=== PATIENT | male | born 1930 | race Caucasian/White ===

== ENCOUNTER 2016-05-17 21:36 | Inpatient (IN) | payer OTHER, MEDICARE ==
[~2016-05-17] VITALS: Ht 172.7 cm; Wt 75.0 kg
[~2016-05-17 21:36] MED LIST: FENO54TA PO; GLIP5 PO; METO25 PO; PROT40TA PO; SIMV40 PO; SINE25100 PO; SYNT25TA PO; TAMS0.4C67 PO; TRAM50 PO
[2016-05-17] MEDS ORDERED: RESP: ALBUTEROL 2.5 MG/3 ML NEB (SCH) ONE (21:41)
[2016-05-17 21:42] VITALS: BP 148/77; PULSE 115; RESP 24; TEMP 99.1; O2SAT 100
[2016-05-17] MEDS ORDERED: RESP: ALBUTEROL 2.5 MG/IPRATROPIUM 0.5 MG NEB (SCH) INH (21:45)
[2016-05-17] MEDS ORDERED: SODIUM CHLORIDE 0.9% FLUSH 5 ML FLUSH IVF PRN (21:45)
[2016-05-17] MEDS ORDERED: methylPREDNISolone SOD SUCC 125 MG/2 ML VIAL IVP ONE (21:45)
[2016-05-17] MEDS: RESP: ALBUTEROL 2.5 MG/3 ML NEB (SCH) INH ×2 (21:49→21:50)
[2016-05-17 21:51] VITALS: PULSE 124; RESP 24
[2016-05-17] MEDS ORDERED: GLIP5TAB8 PO (22:02)
[2016-05-17] MEDS ORDERED: METO25TA3 PO (22:02)
[2016-05-17] MEDS ORDERED: PLAV75TA29 PO (22:02)
[2016-05-17] MEDS ORDERED: ZOCO40TA PO (22:02)
[2016-05-17] MEDS ORDERED: SYNT25TA PO (22:02)
[2016-05-17 22:03] LABS: AUTOMATED NEUTROPHIL # 8.7 TH/MM3 (1.8-7.7); BASOPHIL # 0.1 TH/MM3 (0-0.2); BASOPHIL % 0.5 % (0.0-2.0); EOSINOPHIL % 0.4 % (0.0-4.0); HEMATOCRIT 38.4 % (39.0-51.0); HEMO FLAGS DIFF FINAL; LYMPHOCYTE # 2.5 TH/MM3 (1.0-4.8); MEAN CELL VOLUME 85.1 FL (80.0-100.0); MEAN CORPUSCULAR HEMOGLOBIN 28.5 PG (27.0-34.0); MEAN CORPUSCULAR HGB CONC 33.5 % (32.0-36.0); MONO % 10.7 % (0.0-8.0); NEUT % 68.4 % (16.0-70.0); PLATELET COUNT 241 TH/MM3 (150-450); RED BLOOD COUNT 4.51 MIL/MM3 (4.50-5.90); RED CELL DISTRIBUTION WIDTH 14.8 % (11.6-17.2); WHITE BLOOD COUNT 12.6 TH/MM3 (4.0-11.0)
--- NOTE | 2016-05-17 22:18 | RADRPT ---
EXAM DATE/TIME: 05/17/2016 22:08 [facility] COMPARISON: No previous studies available for comparison. INDICATIONS : Shortness of breath. MEDICAL HISTORY : Hypertension. Hypercholesterolemia. Coronary artery disease. SURGICAL HISTORY : Coronary artery stent. ENCOUNTER: Initial ACUITY: 1 day PAIN SCORE: 0/10 LOCATION: Bilateral chest FINDINGS: A single view of the chest demonstrates no focal consolidation. Minimal basilar atelectasis or scarri ng. Atherosclerotic and tortuous aorta. No pneumothorax. CONCLUSION: 1. Minimal basilar atelectasis or scarring. No focal consolidation or effusion. Chente Allison MD on May 17, 2016 at 22:14 Board Certified Radiologist. This report was verified electronically.
[2016-05-17 22:25] LABS: APTT (PATIENT) 23.9 SEC (24.3-30.1); PROTHROMBIN TIME - PATIENT 11.1 SEC (9.8-11.6)
[2016-05-17 22:34] LABS: ANION GAP 9 MEQ/L (5-15); BICARBONATE 24.8 MEQ/L (21.0-32.0); BLOOD UREA NITROGEN 21 MG/DL (7-18); CHLORIDE 102 MEQ/L (98-107); GLOMERULAR FILTRATION RATE 44 ML/MIN (>89); SODIUM (NA) 136 MEQ/L (136-145)
[2016-05-17 22:45] LABS: CREATINE KINASE 85 U/L (39-308)
[2016-05-17 23:42] VITALS: O2SAT 94
[2016-05-18] VITALS (10 sets, daily range): BP systolic 123–164; BP diastolic 61–78; PULSE 16–114; RESP 16–20; TEMP 97.2–98.1; O2SAT 94–99
[2016-05-18] MEDS ORDERED: IOHEXOL 350 MG/ML 10 ML VIAL (for RAD DIAG) IV ONE (01:26)
--- NOTE | 2016-05-18 01:59 | RADRPT ---
EXAM DATE/TIME: 05/18/2016 01:26 [facility] COMPARISON: No previous studies available for comparison. INDICATIONS : Shortness of breath; rule out pulmonary embolus. IV CONTRAST: 75 cc Omnipaque 350 (iohexol) IV RADIATION DOSE: 11.06 CTDIvol (mGy) MEDICAL HISTORY : Hypertension. Hypercholesterolemia. Cardiovascular diseaseDiabetes SURGICAL HISTORY : hernia repair ENCOUNTER: Initial ACUITY: 1 day PAIN SCALE: 0/10 LOCATION: chest TECHNIQUE: Volumetric scanning of the chest was performed using a pulmonary embolism protocol MIP images were re constructed. Using automated exposure control and adjustment of the mA and/or kV according to patien t size, radiation dose was kept as low as reasonably achievable to obtain optimal diagnostic quality images. FINDINGS: PULMONARY ARTERIES: There are pulmonary embolus seen in the right pulmonary artery supplying the right lower lobe and to a much lesser degree at the pulmonary artery supplying portions of the left lower lobe. LUNGS: There is minimal consolidation at the posterior right lower lobe. PLEURAE: There is no pleural thickening or pleural effusion. MEDIASTINUM: There is good visualization of the great vessels of the middle mediastinum. No evidence of mediastin al or hilar adenopathy/mass. Atherosclerotic changes seen throughout the arterial system including th e aorta and coronary arteries. MUSCULOSKELETAL: Within normal limits for patient age. MISCELLANEOUS: The visualized upper abdominal organs demonstrate no acute abnormality. CONCLUSION: Pulmonary emboli being most prominent at the right lower lobe. Saul Ellis MD on May 18, 2016 at 1:52 Board Certified Radiologist. This report was verified electronically.
[2016-05-18] MEDS ORDERED: HEPARIN-D5W INJ 250 ML IV SCH (02:00)
[2016-05-18] MEDS ORDERED: HEPARIN SODIUM - IV 10,000 UNITS/10 ML VIAL IV ONE ×2 (02:00→02:30)
--- NOTE | 2016-05-18 02:17 | PD ---
HPI Chief Complaint: Respiratory Symptoms Time Seen by Provider: 21:43 Travel History International Travel<30 days: No Contact w/Intl Traveler<30days: No Traveled to known affect area: No History of Present Illness HPI 86-year-old male arrives to the ER by EMS. He has a history of COPD. He's had chest pain and shortness of breath all day long. Location bilateral. EMS reports an O2 sat of 95% on room air. Wheezing present bilaterally upon their arrival. Albuterol and Solu-Medrol was given. The patient reports improvement. He has no history of CHF. He's had no fever. PFSH Past Medical History Arthritis: No Asthma: No Autoimmune Disease: No Blood Disorders: No Heart Rhythm Problems: No Cancer: No Cardiac Catheterization: Yes Cardiovascular Problems: Yes High Cholesterol: Yes Chest Pain: Yes Congestive Heart Failure: No COPD: No Cerebrovascular Accident: No Coronary Artery Disease: Yes Diabetes: Yes Patient Takes Glucophage: Yes Diminished Hearing: No Endocrine: Yes Gastrointestinal Disorders: Yes GERD: No Glaucoma: No Genitourinary: Yes (prostate enlargement) Headaches: No Hepatitis: No Hiatal Hernia: No Hypertension: Yes Immune Disorder: No Kidney Stones: No Musculoskeletal: Yes (generalized weakness) Neurologic: Yes Psychiatric: No Reproductive: No Respiratory: No Migraines: No Myocardial Infarction: No Renal Failure: No Seizures: No Sleep Apnea: No Thyroid Disease: Yes Triglycerides - High: Yes Ulcer: No Past Surgical History Abdominal Surgery: Yes (hernia repair 01/30) AICD: No Appendectomy: No Cholecystectomy: No Coronary Stent: Yes Ear Surgery: No Endocrine Surgery: No Eye Surgery: No Genitourinary Surgery: No Gynecologic Surgery: No Oral Surgery: No Pacemaker: No Other Surgery: Yes (heart stent,sutures to lue) Social History Alcohol Use: No Tobacco Use: Yes Substance Use: No Allergies-Medications (Allergen,Severity, Reaction): Coded Allergies: No Known Allergies (Verified , 05/17/16) Reported Meds & Prescriptions Reported Meds & Active Scripts Active Reported Zocor (Simvastatin) 40 Mg Tab 40 Mg PO DAILY Plavix (Clopidogrel Bisulfate) 75 Mg Tab 75 Mg PO DAILY Metoprolol Tartrate 25 Mg Tab 25 Mg PO BID Glipizide 5 Mg Tab 5 Mg PO BIDAC Take 30 minutes before a meal Synthroid (Levothyroxine Sodium) 25 Mcg Tab 25 Mcg PO DAILY Review of Systems Except as stated in HPI: all other systems reviewed are Neg Physical Exam Narrative GENERAL: 86-year-old male mildly dyspneic emphysematous habitus SKIN: Warm and dry. HEAD: Atraumatic. Normocephalic. EYES: Pupils equal and round. No scleral icterus. No injection or drainage. ENT: No nasal bleeding or discharge. Mucous membranes pink and moist. NECK: Trachea midline. No JVD. CARDIOVASCULAR: Tachycardia. Regular rhythm. RESPIRATORY: Minimal tachypnea. Minimal wheezing present bilaterally. GASTROINTESTINAL: Abdomen soft, non-tender, nondistended. Hepatic and splenic margins not palpable. MUSCULOSKELETAL: No obvious deformities. No clubbing. No cyanosis. No edema. NEUROLOGICAL: Awake and alert. No obvious cranial nerve deficits. Motor grossly within normal limits. Normal speech. PSYCHIATRIC: Appropriate mood and affect; insight and judgment normal. Data Data Last Documented VS Vital Signs Date Time Temp Pulse Resp B/P Pulse Ox O2 Delivery O2 Flow Rate FiO2 05/18/16 01:48 114 20 157/72 96 Nasal Cannula 4 05/17/16 21:42 99.1 Vital signs reviewed Orders Albuterol Neb (Albuterol Neb) (05/17/16 21:41) Complete Blood Count With Diff (05/17/16 21:43) Basic Metabolic Panel (Bmp) (05/17/16 21:43) B-Type Natriuretic Peptide (05/17/16 21:43) Act Partial Throm Time (Ptt) (05/17/16 21:43) Prothrombin Time / Inr (Pt) (05/17/16 21:43) Ckmb (Isoenzyme) Profile (05/17/16 21:43) Troponin I (05/17/16 21:43) Iv Access Insert/Monitor (05/17/16 21:43) Electrocardiogram (05/17/16 21:43) Ecg Monitoring (05/17/16 21:43) Oximetry (05/17/16 21:43) Oxygen Administration (05/17/16 21:43) Chest, Single Ap (05/17/16 21:43) Sodium Chloride 0.9% Flush (Ns Flush) (05/17/16 21:45) Methylprednisolone So Succ Inj (Solumedr (05/17/16 21:45) Albuterol-Ipratropium Neb (Duoneb Neb) (05/17/16 21:45) Albuterol Neb (Albuterol Neb) (05/17/16 22:00) Ct Pulmonary Angiogram (05/18/16 00:00) Heparin Infusion ROMAINE.Q1H (05/18/16 01:57) Heparin Inj (Heparin Inj) (05/18/16 02:00) Heparin Inj (Heparin Inj) (05/18/16 08:00) Heparin Inj (Heparin Inj) (05/18/16 08:00) Heparin-D5w Inj (Heparin-D5w Inj) (05/18/16 02:00) Act Partial Throm Time (Ptt) (05/18/16 01:57) Prothrombin Time / Inr (Pt) (05/18/16 01:57) Cbc No Diff, Includes Plts (05/18/16 01:57) Cbc No Diff, Includes Plts (05/21/16 06:00) Act Partial Throm Time (Ptt) (05/18/16 08:57) Occult Blood (Hemoccult) Stool (05/18/16 01:57) Heparin Inj (Heparin Inj) (05/18/16 02:30) Labs Laboratory Tests Test 05/17/16 21:50 White Blood Count 12.6 TH/MM3 Red Blood Count 4.51 MIL/MM3 Hemoglobin 12.9 GM/DL Hematocrit 38.4 % Mean Corpuscular Volume 85.1 FL Mean Corpuscular Hemoglobin 28.5 PG Mean Corpuscular Hemoglobin 33.5 % Concent Red Cell Distribution Width 14.8 % Platelet Count 241 TH/MM3 Mean Platelet Volume 7.6 FL Neutrophils (%) (Auto) 68.4 % Lymphocytes (%) (Auto) 20.0 % Monocytes (%) (Auto) 10.7 % Eosinophils (%) (Auto) 0.4 % Basophils (%) (Auto) 0.5 % Neutrophils # (Auto) 8.7 TH/MM3 Lymphocytes # (Auto) 2.5 TH/MM3 Monocytes # (Auto) 1.3 TH/MM3 Eosinophils # (Auto) 0.0 TH/MM3 Basophils # (Auto) 0.1 TH/MM3 CBC Comment DIFF FINAL Differential Comment Prothrombin Time 11.1 SEC Prothromb Time International 1.0 RATIO Ratio Activated Partial 23.9 SEC Thromboplast Time Sodium Level 136 MEQ/L Potassium Level 4.0 MEQ/L Chloride Level 102 MEQ/L Carbon Dioxide Level 24.8 MEQ/L Anion Gap 9 MEQ/L Blood Urea Nitrogen 21 MG/DL Creatinine 1.52 MG/DL Estimat Glomerular Filtration 44 ML/MIN Rate Random Glucose 280 MG/DL Calcium Level 8.6 MG/DL Total Creatine Kinase 85 U/L Troponin I LESS THAN 0.02 NG/ML B-Type Natriuretic Peptide 69 PG/ML MDM Medical Decision Making Medical Screen Exam Complete: Yes Emergency Medical Condition: Yes Medical Record Reviewed: Yes Differential Diagnosis NSTEMI, unstable angina, coronary vasospasm, PE, PTX, aortic dissection, pericarditis, myocarditis, endocarditis, PNA, esophageal disease, aneurysm, musculoskeletal etiologies, anxiety, cocaine/sympathomimetic abuse Narrative Course CBC & BMP Diagram 05/17/16 21:50 Troponin less than 0.02 Coags 11.1 / 1.0 / 23.9 EKG reveals sinus tachycardia with a rate of 120 normal axis and intervals no right heart strain Last [address] Angiography 05/18/16 0000 Signed Impressions: Service Date/Time: Wednesday, May 18, 2016 01:26 - CONCLUSION: Pulmonary emboli being most prominent at the right lower lobe. Saul Ellis MD Chest X-Ray 05/17/162142 Signed Impressions: Service Date/Time: Tuesday, May 17, 2016 22:08 - CONCLUSION: 1. Minimal basilar atelectasis or scarring. No focal consolidation or effusion. Chente Allison MD Bilateral PE. Heparin GTT. HR 115 with O2 sat 94% w HR 147/70. Speaking sentences. Admission to senior technologist service. D/w Dr Hills. Critical Care Narrative Aggregate critical care time was 35 minutes. Time to perform other separately billable procedures was not included in the critical care time. My time did not include minutes spent treating any other patients simultaneously or on activities that did not directly contribute to the patient's treatment. The services I provided to this patient were to treat and/or prevent clinically significant deterioration that could result in: Cadriopulmonary arrest I provided critical care services requiring my management, as noted below: Chart data review, documentation time, medication orders and management, vital sign assessments/reviewing monitor data, ordering and reviewing lab tests, ordering and interpreting/reviewing x-rays and diagnostic studies, care of the patient and discussion of the patient with the admitting physicians. Diagnosis Primary Impression: Pulmonary embolism Qualified Code: I26.99 - Other acute pulmonary embolism without acute cor pulmonale Additional Impression: COPD (chronic obstructive pulmonary disease) Qualified Code: J44.9 - Chronic obstructive pulmonary disease, unspecified COPD type Admitting Information Admitting Physician Requests: Diogo Castillo MD May 18, 2016 02:17
[2016-05-18 03:04] LABS: HEMATOCRIT 37.1 % (39.0-51.0); MEAN CELL VOLUME 86.7 FL (80.0-100.0); MEAN CORPUSCULAR HEMOGLOBIN 29.1 PG (27.0-34.0); MEAN CORPUSCULAR HGB CONC 33.6 % (32.0-36.0); PLATELET COUNT 236 TH/MM3 (150-450); RED BLOOD COUNT 4.28 MIL/MM3 (4.50-5.90); RED CELL DISTRIBUTION WIDTH 14.8 % (11.6-17.2); REVIEW FLAG FINAL; WHITE BLOOD COUNT 12.1 TH/MM3 (4.0-11.0)
[2016-05-18 03:38] LABS: INTERNATIONAL NORMALIZED RATIO 1.1 RATIO; PROTHROMBIN TIME - PATIENT 12.2 SEC (9.8-11.6)
[2016-05-18 03:40] LABS: APTT (PATIENT) GREATER THAN 153.4 SEC (24.3-30.1)
--- NOTE | 2016-05-18 04:07 | HHI.HP ---
HPI Service Critical Care Medicine Primary Care Physician Fantasma Hawk MD Admission Diagnosis PE Diagnosis: Travel History International Travel<30 Days: No Contact w/Intl Traveler <30 Da: No Traveled to Known Affected Are: No History of Present Illness 86-year-old male with past medical history of COPD, ongoing tobacco abuse, coronary artery disease with prior RCA stent in 2003, hypertension, diabetes, hypothyroidism who presents to [facility] emergency department with shortness of breath and chest pain. He is not on home oxygen. He told ED physician he had been having symptoms about one day. For me he indicated he may have been having some shortness of breath and cough for about 2 weeks. He denies hemoptysis, sputum production, fever. He describes chest pain as moderate severity, burning pain in bilateral chest, non pleuritic. He had slight wheezing per ED physician so he was initially given albuterol 2.5 mg nebs every 153. He then was given Solu-Medrol 125 mg IV. After this his wheezing resolved however he still had mild hypoxia and tachycardia so a CTA chest was ordered which demonstrated bilateral subsegmental PEs, most prominent in right lower lobe but also with thrombus and left lower lobe. He was started on heparin drip in the emergency department. He denies prior history of venous thromboembolic disease. No recent surgeries or trauma. He states he is reasonably active and walks around his home and leaves the house to go shopping. Denies prior history of malignancy. He states he believes he has had a prior colonoscopy but he is not sure. Denies family history of venous thromboembolic disease. Denies head trauma or recent GI bleeding. Review of Systems Respiratory: COMPLAINS OF: Shortness of breath Cardiovascular: COMPLAINS OF: Chest pain Past Family Social History Allergies: Coded Allergies: No Known Allergies (Verified , 05/17/16) Past Medical History Hypertension COPD Hyperlipidemia Coronary artery disease with prior RCA stents 2003 (Dr. Jacobo Chacon) Diabetes Hypothyroidism Tobacco abuse Past Surgical History Inguinal Hernia repair Cardiac catheterization with RCA stent 2003 Reported Medications Metoprolol 25 mg by mouth twice a day Zocor 40 mg by mouth daily Plavix 75 mg by mouth daily Glipizide 5 mg by mouth twice a day Synthroid 25 g by mouth daily Family History He denies family history of venous thromboembolic disease. 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 SKIN: Warm and dry. HEAD: Atraumatic. Normocephalic. EYES: Pupils equal and round. No scleral icterus. No injection or drainage. ENT: No nasal bleeding or discharge. Mucous membranes pink and moist. NECK: Trachea midline. No JVD. CARDIOVASCULAR: Regular, sinus tach on the monitor with rate in the low 100s. No murmurs rubs or gallops. RESPIRATORY: Breathing comfortable without accessory muscle use. Clear to auscultation bilaterally without wheezes Rales or rhonchi. On 2 L nasal cannula with sats 96%. GASTROINTESTINAL: Abdomen soft, non-tender, nondistended. Bowel sounds present MUSCULOSKELETAL: Extremities without clubbing, cyanosis, or edema. No obvious deformities. No calf swelling, erythema, or warmth. Negative Homans sign. NEUROLOGICAL: Awake and alert. Oriented to self, [place], [place]. Was oriented to year after he took some time to answer. Initially said the present with Davi but then corrected to say Trump. No obvious cranial nerve deficits. Normal speech. Strength 5 out of 5 in all extremities. Sensation intact. Laboratory Laboratory Tests Test 05/17/16 05/18/16 21:50 02:45 White Blood Count 12.6 12.1 Red Blood Count 4.51 4.28 Hemoglobin 12.9 12.5 Hematocrit 38.4 37.1 Mean Corpuscular Volume 85.1 86.7 Mean Corpuscular Hemoglobin 28.5 29.1 Mean Corpuscular Hemoglobin 33.5 33.6 Concent Red Cell Distribution Width 14.8 14.8 Platelet Count 241 236 Mean Platelet Volume 7.6 8.0 Neutrophils (%) (Auto) 68.4 Lymphocytes (%) (Auto) 20.0 Monocytes (%) (Auto) 10.7 Eosinophils (%) (Auto) 0.4 Basophils (%) (Auto) 0.5 Neutrophils # (Auto) 8.7 Lymphocytes # (Auto) 2.5 Monocytes # (Auto) 1.3 Eosinophils # (Auto) 0.0 Basophils # (Auto) 0.1 CBC Comment DIFF FINAL Differential Comment Prothrombin Time 11.1 12.2 Prothromb Time International 1.0 1.1 Ratio Activated Partial 23.9 GREATER THAN Thromboplast Time 153.4 Sodium Level 136 Potassium Level 4.0 Chloride Level 102 Carbon Dioxide Level 24.8 Anion Gap 9 Blood Urea Nitrogen 21 Creatinine 1.52 Estimat Glomerular Filtration 44 Rate Random Glucose 280 Calcium Level 8.6 Total Creatine Kinase 85 Troponin I LESS THAN 0.02 B-Type Natriuretic Peptide 69 Result Diagram: 05/18/16 0245 05/17/162149 Assessment and Plan Assessment and Plan NEURO: Chest pain secondary to PE Lortab as needed for moderate pain. Morphine as needed for breakthrough pain RESP: Acute bilateral subsegmental pulmonary emboli (right lower lobe, left lower lobe ) COPD Tobacco abuse Heparin drip initiated in the emergency department. DuoNeb every 6 hours. Albuterol every 2 hours when necessary Received solumedrol 125 mg IV in the ED. CV: Hyperlipidemia Hypertension Coronary artery disease with prior history of RCA stent 2003 (Dr. Jasper Chacon) Continue Zocor 40 g by mouth daily Continue metoprolol 25 mg by mouth twice a day Obtain 2-D echo BNP and troponin are normal EKG sinus tachycardia rate of [address] or T-wave abnormalities. Stop Plavix 75 mg by mouth daily. Aspirin 81 mg daily for antiplatelet due to prior RIO 2003. Eliquis for anticoagulation for PE. GI: 2000-calorie ADA, Heart healthy diet FEN/RENAL: Voiding. Monitor intake and output. Monitor electrolytes and replace as indicated. ID: Monitor for signs and symptoms of infection HEME: Monitor CBC Started on heparin drip in the ED. Will use heparin acutely and then transition to oral anticoagulant therapy. Recommend Eliquis 10 mg bid x7 days followed by 5 mg daily for 6 months. Followup as outpatient for colonoscopy/PSA. Most recent stent was in 2003, so could stop plavix and use low dose asa instead. Initial PTT of 153 was drawn at time of heparin bolus. Repeat PTT is 151. Called to ED RN and heparin drip placed on hold. Repeat PTTq2h and restart heparin drip when appropriate per protocol. ENDO: Hypothyroidism Diabetes mellitus Low dose insulin sliding scale Add TSH to blood in lab. Home dose of Synthroid 25 g by mouth daily PROPH: Heparin drip or PE will provide DVT prophylaxis. Protonix 40 mg by mouth daily for stress ulcer prophylaxis. ACCESS: Peripheral IV providing adequate access at this time. Discussed code status with patient. He states he wishes to be DNR. I attempted to call his , Serene, to update. There was no answer. Admit to floor. Hospitalist to assume care. Discussed with Dr. Miller. L3 H&P Kyara Hills MD May 18, 2016 04:07
[2016-05-18] MEDS ORDERED: ACETAMINOPHEN 325 MG TAB PO PRN (04:30)
[2016-05-18] MEDS ORDERED: GLUCAGON 1 MG/ML VIAL OTHER PRN (05:15)
[2016-05-18] MEDS ORDERED: DEXTROSE 50% IN WATER 50 ML VIAL(D50) IV PUSH PRN (05:15)
[2016-05-18] MEDS ORDERED: CHLORHEXIDINE GLUCONATE 2 % 1 PACK (2 CLOTHS) TOP PRN (05:30)
[2016-05-18] MEDS ORDERED: RESP: ALBUTEROL 2.5 MG/3 ML NEB (PRN) INH (05:30)
[2016-05-18] MEDS ORDERED: ONDANSETRON HCL 4 MG/2 ML VIAL IV PRN (05:30)
[2016-05-18] MEDS ORDERED: MISCELLANEOUS NURSING INFORMATION XX SCH (05:30)
[2016-05-18] MEDS ORDERED: SODIUM CHLORIDE 0.9% FLUSH 5 ML FLUSH IV FLUSH PRN (05:30)
[2016-05-18 05:47] LABS: APTT (PATIENT) 151.1 SEC (24.3-30.1)
[2016-05-18] MEDS: INSULIN ASPART SUPPLEMENTAL SCALE SQ SCH ×4 (07:13→21:29)
[2016-05-18] MEDS ORDERED: MORPHINE SULFATE 4 MG/ML INJ IV PUSH PRN (07:45)
[2016-05-18] MEDS ORDERED: ACETAMINOPHEN/HYDROcodone 325 MG/5 MG TAB PO PRN (07:45)
[2016-05-18] MEDS ORDERED: HEPARIN SODIUM - IV 10,000 UNITS/10 ML VIAL IV PRN ×2 (08:00)
[2016-05-18] MEDS: SODIUM CHLORIDE 0.9% FLUSH 5 ML FLUSH IV FLUSH SCH ×2 (08:26→21:00)
[2016-05-18 09:04] LABS: APTT (PATIENT) 152.2 SEC (24.3-30.1)
[2016-05-18] MEDS: RESP: ALBUTEROL 2.5 MG/IPRATROPIUM 0.5 MG NEB (SCH) INH ×3 (09:48→20:23)
[2016-05-18] MEDS: PANTOPRAZOLE SOD 40 MG DELAYED RELEASE TAB PO SCH (10:05)
[2016-05-18 11:32] LABS: APTT (PATIENT) 52.3 SEC (24.3-30.1)
[2016-05-18] MEDS ORDERED: INSULIN HUMAN NPH 1,000 UNITS/10 ML VIAL SQ ONE (13:30)
--- NOTE | 2016-05-18 14:25 | EKG ---
Date Performed: 05/17/2016 Time Performed: 21:46:52 PTAGE: 86 years EKG: SINUS TACHYCARDIA LOW QRS VOLTAGE IN EXTREMITY LEADS ABNORMAL RHYTHM ECG PREVIOUS TRACING : 06/12/2013 10.29 DOCTOR: Tristan Gregory Interpretating Date/Time 05/18/2016 14:22:19
[2016-05-18] MEDS: SODIUM CHLOR 0.9% 1000 ML INJ 1,000 ML IV SCH (16:00)
--- NOTE | 2016-05-18 16:01 | HHI.PR ---
Subjective Remarks Follow for PE Mildly confused, has bleeding but patient accidentally pulled his baseline. No shortness of breath, no chest pain. No palpitations. Questionable poor historian. Objective Vitals Vital Signs Date Time Temp Pulse Resp B/P Pulse Ox O2 Delivery O2 Flow Rate FiO2 05/18/16 12:00 98.1 16 16 157/74 96 05/18/16 09:53 99 Nasal Cannula 4.00 05/18/16 08:00 97.2 98 16 164/78 97 05/18/16 07:29 94 Nasal Cannula 2 05/18/16 07:16 97.8 97 19 135/61 97 05/18/16 07:13 97 20 97 Room Air 05/18/16 04:18 108 18 123/75 96 Nasal Cannula 4 05/18/16 01:48 114 20 157/72 96 Nasal Cannula 4 05/17/16 23:42 94 Nasal Cannula 4.00 05/17/16 21:51 124 24 Aerosol Mask 05/17/16 21:51 123 22 97 Aerosol Mask 05/17/16 21:51 97 Aerosol Mask 05/17/16 21:42 99.1 115 24 148/77 100 Result Diagram: 05/18/16 0245 05/17/16 2150 Objective Remarks Not in distress PERRL, pink conjunctiva without injection, anicteric Nose without bleeding, airway patent, oropharynx clear Supple neck, no masses or thyromegaly, trachea midline Normal rate and regular rhythm, no murmurs gallops or rubs appreciated. Decreased breath sounds, no wheezing. Normal bowel sounds, soft, non-tender, nondistended, no guarding. Extremities without clubbing, cyanosis, or edema. Patient is bleeding, he just pulled his IV line. No rash of generalized distribution. Skin is warm and dry. AAO oriented to self and place, not to year. No cranial nerve deficits, moves all 4 extremities, no focal neurologic deficits, ambulating. A/P Assessment and Plan Chest pain secondary to PE - currently on heparin, will switch to eliquis. Renally dose, discussed with Pharmacy Ryan. Lortab as needed for moderate pain. IV Morphine as needed for breakthrough pain COPD - clear now, no wheezing, taper solumedrol to daily. Cont duonebs ATC and PRN. ARF - start NS, monitor, recheck BMP tomorrow. Hyperlipidemia - zocor Coronary artery disease with prior history of RCA stent 2003 (Dr. Jasper Chacon) - Continue metoprolol 25 mg by mouth twice a day f/u 2-D echo, BNP and troponin are normal, EKG sinus tachycardia rate of [address] or T-wave abnormalities. Stop plavix, cont ASA Hypothyroidism - cont synthroid Diabetes mellitus - increase to med dose insulin sliding scale PROPH: Eliquis. Protonix 40 mg by mouth daily for stress ulcer prophylaxis. Frida Miller MD May 18, 2016 16:01
[2016-05-18] MEDS ORDERED: APIXABAN 5 MG TABLET PO SCH (16:15)
[2016-05-18 18:35] LABS: APTT (PATIENT) 44.6 SEC (24.3-30.1)
[2016-05-19] VITALS: BP 139/69; PULSE 86; RESP 18; TEMP 98.1; O2SAT 95
[2016-05-19 04:00] VITALS: BP 137/65; PULSE 85; RESP 18; TEMP 98; O2SAT 96
[2016-05-19] MEDS ORDERED: CHLORHEXIDINE GLUCONATE 2 % 1 PACK (2 CLOTHS) TOP SCH (04:00)
[2016-05-19] MEDS: RESP: ALBUTEROL 2.5 MG/IPRATROPIUM 0.5 MG NEB (SCH) INH ×3 (04:46→16:38)
[2016-05-19 05:42] LABS: AUTOMATED NEUTROPHIL # 17.7 TH/MM3 (1.8-7.7); BASOPHIL % 0.1 % (0.0-2.0); HEMATOCRIT 34.8 % (39.0-51.0); HEMO FLAGS DIFF FINAL; LYMPH % 5.2 % (9.0-44.0); MEAN CELL VOLUME 83.8 FL (80.0-100.0); MEAN CORPUSCULAR HEMOGLOBIN 29.3 PG (27.0-34.0); MONO % 4.7 % (0.0-8.0); PLATELET COUNT 265 TH/MM3 (150-450); RED BLOOD COUNT 4.15 MIL/MM3 (4.50-5.90); RED CELL DISTRIBUTION WIDTH 14.8 % (11.6-17.2); WHITE BLOOD COUNT 19.6 TH/MM3 (4.0-11.0)
[2016-05-19 06:04] LABS: MAGNESIUM 2.3 MG/DL (1.5-2.5); POTASSIUM 3.8 MEQ/L (3.5-5.1)
[2016-05-19] MEDS: INSULIN ASPART SUPPLEMENTAL SCALE SQ SCH ×2 (06:07→12:26)
[2016-05-19] MEDS: SODIUM CHLOR 0.9% 1000 ML INJ 1,000 ML IV SCH (06:10)
[2016-05-19 08:00] VITALS: BP 145/65; PULSE 79; RESP 16; TEMP 98.2; O2SAT 96
[2016-05-19] MEDS ORDERED: APIXABAN 5 MG TABLET PO SCH (08:00)
[2016-05-19 08:02] VITALS: PULSE 79
[2016-05-19] MEDS ORDERED: HYDR-3516 PO (08:59)
[2016-05-19] MEDS ORDERED: APIX5TAB PO (08:59)
[2016-05-19] MEDS ORDERED: Aspirin Chew TUBE (08:59)
[2016-05-19] MEDS: PANTOPRAZOLE SOD 40 MG DELAYED RELEASE TAB PO SCH (09:00)
[2016-05-19] MEDS ORDERED: ASPIRIN 81 MG CHEW TAB TUBE SCH (09:00)
[2016-05-19] MEDS: SODIUM CHLORIDE 0.9% FLUSH 5 ML FLUSH IV FLUSH SCH (09:00)
--- NOTE | 2016-05-19 09:00 | HHI.DS ---
Discharge Summary Admission Date May 18, 2016 at 02:48 Discharge Date: May 19, 2016 Admitting Diagnosis PE (1) CKD (chronic kidney disease), stage III ICD Code: N18.3 Diagnosis: Secondary (2) Pulmonary embolism ICD Code: I26.99 Diagnosis: Principal (3) COPD (chronic obstructive pulmonary disease) ICD Code: J44.9 Diagnosis: Secondary Procedures None Brief History - From Admission 86-year-old male with past medical history of COPD, ongoing tobacco abuse, coronary artery disease with prior RCA stent in 2003, hypertension, diabetes, hypothyroidism who presents to [facility] emergency department with shortness of breath and chest pain. He is not on home oxygen. He told ED physician he had been having symptoms about one day. For me he indicated he may have been having some shortness of breath and cough for about 2 weeks. He denies hemoptysis, sputum production, fever. He describes chest pain as moderate severity, burning pain in bilateral chest, non pleuritic. He had slight wheezing per ED physician so he was initially given albuterol 2.5 mg nebs every 153. He then was given Solu-Medrol 125 mg IV. After this his wheezing resolved however he still had mild hypoxia and tachycardia so a CTA chest was ordered which demonstrated bilateral subsegmental PEs, most prominent in right lower lobe but also with thrombus and left lower lobe. He was started on heparin drip in the emergency department. He denies prior history of venous thromboembolic disease. No recent surgeries or trauma. He states he is reasonably active and walks around his home and leaves the house to go shopping. Denies prior history of malignancy. He states he believes he has had a prior colonoscopy but he is not sure. Denies family history of venous thromboembolic disease. Denies head trauma or recent GI bleeding. CBC/BMP: 05/19/16 0527 05/19/16 0527 Significant Findings Laboratory Tests Test 05/17/16 05/18/16 05/18/16 05/18/16 21:50 02:45 04:50 07:30 White Blood Count 12.6 TH/MM3 12.1 TH/MM3 (4.0-11.0) (4.0-11.0) Hemoglobin 12.9 GM/DL 12.5 GM/DL (13.0-17.0) (13.0-17.0) Hematocrit 38.4 % 37.1 % (39.0-51.0) (39.0-51.0) Monocytes (%) (Auto) 10.7 % (0.0-8.0) Neutrophils # (Auto) 8.7 TH/MM3 (1.8-7.7) Monocytes # (Auto) 1.3 TH/MM3 (0-0.9) Activated Partial 23.9 SEC GREATER THAN 151.1 SEC 152.2 SEC Thromboplast Time (24.3-30.1) 153.4 SEC (24.3-30.1) (24.3-30.1) (24.3-30.1) Blood Urea Nitrogen 21 MG/DL (7-18) Creatinine 1.52 MG/DL (0.60-1.30) Estimat Glomerular Filtration 44 ML/MIN (>89) Rate Random Glucose 280 MG/DL (74-106) Troponin I LESS THAN 0.02 NG/ML (0.02-0.05) Red Blood Count 4.28 MIL/MM3 (4.50-5.90) Prothrombin Time 12.2 SEC (9.8-11.6) Test 05/18/16 05/18/16 05/19/16 10:42 17:28 05:27 Activated Partial 52.3 SEC 44.6 SEC Thromboplast Time (24.3-30.1) (24.3-30.1) White Blood Count 19.6 TH/MM3 (4.0-11.0) Red Blood Count 4.15 MIL/MM3 (4.50-5.90) Hemoglobin 12.2 GM/DL (13.0-17.0) Hematocrit 34.8 % (39.0-51.0) Neutrophils (%) (Auto) 90.0 % (16.0-70.0) Lymphocytes (%) (Auto) 5.2 % (9.0-44.0) Neutrophils # (Auto) 17.7 TH/MM3 (1.8-7.7) Blood Urea Nitrogen 22 MG/DL (7-18) Creatinine 1.50 MG/DL (0.60-1.30) Estimat Glomerular Filtration 44 ML/MIN (>89) Rate Random Glucose 213 MG/DL (74-106) PE at Discharge Not in distress PERRL, pink conjunctiva without injection, anicteric Nose without bleeding, airway patent, oropharynx clear Supple neck, no masses or thyromegaly, trachea midline Normal rate and regular rhythm, no murmurs gallops or rubs appreciated. Decreased breath sounds, no wheezing. Normal bowel sounds, soft, non-tender, nondistended, no guarding. Extremities without clubbing, cyanosis, or edema. Patient is bleeding, he just pulled his IV line. No rash of generalized distribution. Skin is warm and dry. AAO oriented to self and place, not to year. No cranial nerve deficits, moves all 4 extremities, no focal neurologic deficits, ambulating. Pt update on day of discharge Denies any chest pain or shortness of breath. No bleeding. No nausea or vomiting. On room air Hospital Course This is an 86-year-old male with history of hypertension, COPD and diabetes mellitus presenting to the hospital with chest pain and shortness of breath. Upon ED admission, workup revealed a pulmonary embolism. Patient was initially seen by the [facility] specialist. Patient was also found to be in COPD exacerbation. Patient was started promptly on heparin drip and was given pain medications for pain control. He was also started on intravenous Solu-Medrol, DuoNeb's and oxygen support. Patient was also in acute renal failure for which patient was started normal saline. A few days, renal failure improved, creatinine improved. Patient shortness of breath and chest pain also resolved. Solu- Medrol was tapered fast. He was then switched eliquis, he will continue eliquis for 10 mg twice a day for 7 days and then switched to 5 mg twice a day indefinitely. Patient has chronic Her kidney disease but after checking with pharmacy, this is the correct dosing for PE. He will be discharged to rehabilitation. Pt Condition on Discharge: Good Discharge Disposition: Discharge to SNF Discharge Time: > 30 minutes Discharge Instructions DIET: Follow Instructions for: Heart Healthy Diet Activities you can perform: Regular-No Restrictions Frida Miller MD May 19, 2016 08:59
[2016-05-19] MEDS ORDERED: INFLUENZA VIRUS VACCINE (QUADRIVALENT) 0.5 ML SYR IM ONE (10:00)
[2016-05-19] MEDS ORDERED: PNEUMOCOCCAL POLYVALENT INJ 25 MCG/0.5 ML SYR IM ONE (10:00)
[2016-05-19 10:21] VITALS: O2SAT 97
[2016-05-19 12:00] VITALS: BP 144/72; PULSE 88; RESP 16; TEMP 98.3; O2SAT 97
--- NOTE | 2016-05-19 14:49 | EC ---
Study Study Date:05/18/2016 STUDY CONCLUSIONS SUMMARY - Left ventricle: The cavity size was normal. Wall thickness was normal. Systolic function was mildly reduced. The estimated ejection fraction was in the range of 45% to 50%. Wall motion was normal; there were no regional wall motion abnormalities. - Aortic valve: Valve area: 1.86cm^2 (Vmax). If LV function is below 40, please consider prescribing an ACEI or ARB or document rationale for non-use. PROCEDURE DATA STUDY STATUS: Elective. Procedure: Transthoracic echocardiography. Image quality was poor. Scanning was performed from the parasternal, apical, and subcostal acoustic windows. Study completion: The patient tolerated the procedure well. Transthoracic echocardiography. M-mode, complete 2D, complete spectral Doppler, and color Doppler. Patient status: Inpatient. CARDIAC ANATOMY LEFT VENTRICLE: The cavity size was normal. Wall thickness was normal. Systolic function was mildly reduced. The estimated ejection fraction was in the range of 45% to 50%. Wall motion was normal; there were no regional wall motion abnormalities. AORTIC VALVE: Trileaflet; normal thickness leaflets. Doppler: Transvalvular velocity was within the normal range. There was no stenosis. No regurgitation. Valve area: 1.86cm^2 (Vmax). AORTA: Aortic root: The aortic root was normal in size. MITRAL VALVE: Structurally normal valve. Doppler: Transvalvular velocity was within the normal range. There was no evidence for stenosis. No regurgitation. LEFT ATRIUM: The atrium was normal in size. RIGHT VENTRICLE: The cavity size was normal. Wall thickness was normal. PULMONIC VALVE: Doppler: Transvalvular velocity was within the normal range. There was no evidence for stenosis. No regurgitation. TRICUSPID VALVE: Structurally normal valve. Doppler: Transvalvular velocity was within the normal range. Trace regurgitation. PULMONARY ARTERY: The main pulmonary artery was normal-sized. Systolic pressure was within the normal range. RIGHT ATRIUM: The atrium was normal in size. PERICARDIUM: There was no pericardial effusion. SYSTEMIC VEINS: Inferior vena cava: The vessel was normal in size. BASIC MEASUREMENTS ADULT NORMAL Left ventricle LV internal dimension, ED, chordal level, *37 mm 43-52 PLAX LV internal dimension, ES, chordal level, 30.6 mm 23-38 PLAX Fractional shortening, chordal level, PLAX *17 % >29 LV posterior wall thickness, ED 7.63 mm IVS/LVPW ratio, ED 1.1 <1.3 Ventricular septum Septal thickness, ED 8.43 mm Aortic valve Leaflet separation 17 mm 15-26 BASIC MEASUREMENTS ADULT NORMAL Aortic valve Leaflet separation 17 mm 15-26 Aorta Root diameter, ED 34 mm 20-37 Left atrium Anterior-posterior dimension, ES 31 mm 19-40 LA/aortic root ratio 0.91 DOPPLER MEASUREMENTS ADULT NORMAL Main pulmonary artery Pressure, S 22 mm Hg =30 Aortic valve Peak velocity, S 105 cm/s Valve area, Vmax 1.86 cm^2 Mitral valve Peak E-wave velocity 70.6 cm/s Peak A-wave velocity 112 cm/s Deceleration time *120 ms 150-230 Peak E/A ratio 0.6 Tricuspid valve Regurgitant peak velocity 191 cm/s Peak RV-RA gradient, S 15 mm Hg Maximal regurgitant velocity 191 cm/s Systemic veins Estimated CVP 10 mm Hg Right ventricle RV pressure, S 25 mm Hg <30 Pulmonic valve Peak velocity, S 85.5 cm/s LEGEND: Mean values are shown as u=mean value. Asterisk (*) hyman values outside specified normal range. Prepared and signed by Tristan Gregory [id number]
== END 2016-05-19 16:56 | DRG 176 ==
LOC: NEPC 21:36 → NEDA 05-18 02:48 → N04A 05-18 08:15
PROVIDERS: ADMIT Hospitalist; ATTEND Hospitalist
DX: I26.99 Other pulmonary embolism without acute cor pulmonale (principal); N17.9 Acute kidney failure, unspecified; E11.22 Type 2 diabetes mellitus with diabetic chronic kidney disease; J44.1 Chronic obstructive pulmonary disease with (acute) exacerbation; N18.3 Chronic kidney disease, stage 3 (moderate); E78.00 Pure hypercholesterolemia, unspecified; I12.9 Hypertensive chronic kidney disease with stage 1 through stage 4 chronic kidney disease, or unspecified chronic kidney disease; I25.10 Atherosclerotic heart disease of native coronary artery without angina pectoris; N18.9 Chronic kidney disease, unspecified; N40.0 Benign prostatic hyperplasia without lower urinary tract symptoms; R09.02 Hypoxemia; E03.9 Hypothyroidism, unspecified; R00.0 Tachycardia, unspecified; E78.5 Hyperlipidemia, unspecified; Z95.5 Presence of coronary angioplasty implant and graft; F17.210 Nicotine dependence, cigarettes, uncomplicated; Z79.82 Long term (current) use of aspirin; Z79.84 Long term (current) use of oral hypoglycemic drugs
CPT/HCPCS: 71010; 71275; 80048; 82550; 82948; 83735; 83880; 84100; 84443; 84484; 85025; 85027; 85610; 85730; 93005; 93306; 94150; 94640; 94664; 94667; J1644; J1815; J7030; J7613; Q9967

== ENCOUNTER 2016-11-27 10:08 | Emergency (ER) | payer MEDICARE, OTHER ==
[~2016-11-27] VITALS: Ht 172.7 cm; Wt 77.0 kg
[~2016-11-27 10:08] MED LIST changes: +APIX5TAB PO; +Aspirin Chew TUBE; -FENO54TA PO; -GLIP5 PO; +GLIP5TAB8 PO; +HYDR-3516 PO; -METO25 PO; +METO25TA3 PO; -PROT40TA PO; -SIMV40 PO; -SINE25100 PO; -TAMS0.4C67 PO; -TRAM50 PO; +ZOCO40TA PO
[2016-11-27 10:11] VITALS: BP 127/64; PULSE 74; RESP 18; TEMP 97.7; O2SAT 94
[2016-11-27] MEDS ORDERED: CIPR-9 PO (10:26)
--- NOTE | 2016-11-27 10:55 | PD ---
HPI Chief Complaint: Fall Time Seen by Provider: 10:23 Travel History International Travel<30 days: No Contact w/Intl Traveler<30days: No Traveled to known affect area: No History of Present Illness HPI Is a well 77 year woman who presents to the emergency department after slip and the bathtub. States he slipped fell or backward and hit his back. Denies hitting his head explicitly. Denies any pain now. He is a little bit tenderness in his mid upper back. He also has a rash in his groin that been her for about a week or so, with some left-sided tenderness. He is on Eliquis. States she otherwise been feeling well and healthy. Does not have a list of his medicines History Past Medical History Narrative Medical Hypertension COPD Hyperlipidemia Coronary artery disease with prior RCA stents 2003 (Dr. Jacobo Chacon) Diabetes Hypothyroidism Tobacco abuse PE, reportedly on Elliquis Social History Alcohol Use: No Tobacco Use: Yes (1PPD) Allergies-Medications (Allergen,Severity, Reaction): Coded Allergies: No Known Allergies (Verified , 11/27/16) Reported Meds & Prescriptions Reported Meds & Active Scripts Active Eliquis (Apixaban) 5 Mg Tab 10 Mg PO Q12H 6 Days Reported Cipro (Ciprofloxacin HCl) 500 Mg Tab 500 Mg PO BID Zocor (Simvastatin) 40 Mg Tab 40 Mg PO DAILY Metoprolol Tartrate 25 Mg Tab 25 Mg PO BID Glipizide 5 Mg Tab 5 Mg PO BIDAC Take 30 minutes before a meal Synthroid (Levothyroxine Sodium) 25 Mcg Tab 25 Mcg PO DAILY Review of Systems Except as stated in HPI: all other systems reviewed are Neg Physical Exam Narrative GENERAL: Well-appearing 86-year-old man, no acute distress. SKIN: Focused skin assessment warm/dry. HEAD: Atraumatic. Normocephalic. No bruising or evidence of trauma at all. No abrasions. EYES: Pupils equal and round. No scleral icterus. No injection or drainage. ENT: No nasal bleeding or discharge. Mucous membranes pink and moist. NECK: Trachea midline. No midline tenderness. No step-offs or deformities. CARDIOVASCULAR: Regular rate and rhythm. No murmur appreciated. RESPIRATORY: No accessory muscle use. Clear to auscultation. Breath sounds equal bilaterally. GASTROINTESTINAL: Abdomen soft, non-tender, nondistended. Hepatic and splenic margins not palpable. MUSCULOSKELETAL: No obvious deformities. Minimal tenderness in the midthoracic spine. No bruising ecchymosis of also deformities. NEUROLOGICAL: Awake and alert. No obvious cranial nerve deficits. Motor grossly within normal limits. Normal speech. PSYCHIATRIC: Appropriate mood and affect; insight and judgment normal. Data Data Last Documented VS Vital Signs Date Time Temp Pulse Resp B/P (MAP) Pulse Ox O2 Delivery O2 Flow Rate FiO2 11/27/16 10:11 97.7 74 18 127/64 (85) 94 Orders Orders Spine, Thoracic-Ap/Lat/Sw(3vw) (11/27/16 ) [facility] Medical Decision Making Medical Screen Exam Complete: Yes Emergency Medical Condition: Yes Interpretation(s) Last 24 hours Impressions Thoracic Spine X-Ray 11/27/16 0000 Signed Impressions: Service Date/Time: Sunday, November 27, 2016 10:46 - CONCLUSION: Abnormal left pedicle T12. MRI is suggested. Selwyn Rodríguez MD FACR Differential Diagnosis Fall, back injury, head injury, neck injury, other Narrative Course Medical decision making This is an 86 room and appears irritated his back. He also denies hitting his head. He is on Eliquis. An extensive discussion regarding the risk of bleeding on Eliquis. Patient emphatically didn't hit his head at all. He agrees to return for any headache or other symptoms at all. He does have a little bit of mid back tenderness in the thoracic spine. No bruising or ecchymosis. We'll check x-ray. Likely negative. FINAL: Patient may need Outpatient MRI of his back. Discussed with patient. No fractures. Diagnosis Primary Impression: Fall Additional Impression: Back pain Additional Instructions: Follow-up with your primary doctor in 3-5 days for repeat evaluation. MRI is recommended of your back regarding abnormal findings on the x-ray today. This can be done as an outpatient. Return to the emergency department for any worsening pain, any numbness tingling weakness or trouble walking, or if you develop any headache confusion or new neurologic symptoms. Use Tylenol as needed for back pain. Med/Other Pt SpecificInfo: No Change to Meds Disposition: 01 DISCHARGE HOME Condition: Stable Gonzalo Monroe MD Nov 27, 2016 10:55
--- NOTE | 2016-11-27 11:24 | RADRPT ---
EXAM DATE/TIME: 11/27/2016 10:46 [facility] COMPARISON: CT PULMONARY ANGIOGRAM, May 18, 2016, 1:26. INDICATIONS : Back pain with no known injury MEDICAL HISTORY : None. SURGICAL HISTORY : None. ENCOUNTER: Initial ACUITY: 1 week PAIN SCORE: 6/10 LOCATION: Thoracic spine FINDINGS: Extensive degenerative changes are evident. There is an abnormal pedicle of T12 left side suspicious for neoplastic process. The this was not present previously. MRI would be of benefit. CONCLUSION: Abnormal left pedicle T12. MRI is suggested. Selwyn Rodríguez MD FACR on November 27, 2016 at 11:20 Board Certified Radiologist. This report was verified electronically.
[2016-11-27] MEDS ORDERED: VALT1TAB PO (12:03)
== END 2016-11-27 12:07 | disposition home or self-care (01) ==
LOC: PHED 10:08
DX: M54.6 Pain in thoracic spine (principal); R21 Rash and other nonspecific skin eruption; I10 Essential (primary) hypertension; E11.9 Type 2 diabetes mellitus without complications; E03.9 Hypothyroidism, unspecified; E78.5 Hyperlipidemia, unspecified; F17.200 Nicotine dependence, unspecified, uncomplicated; W18.2XXA Fall in (into) shower or empty bathtub, initial encounter; Z79.01 Long term (current) use of anticoagulants; Z79.84 Long term (current) use of oral hypoglycemic drugs; Z86.79 Personal history of other diseases of the circulatory system; Z87.09 Personal history of other diseases of the respiratory system
CPT/HCPCS: 72072; 99283